=== PATIENT | male | born 1975 | race Caucasian/White ===

== ENCOUNTER 2020-02-10 15:30 | Outpatient (CLI) | payer OTHER, SELFPAY ==
--- NOTE | ~2020-02-10 | XR_ITS ---
XR lumbar spine 2-3V DATE: 02/10/2020 16:02 INDICATION: Low back pain TECHNIQUE: AP, lateral, coned lateral lumbosacral views COMPARISON: None FINDINGS: Mild dorsal scoliosis of the lower thoracic and lumbar spine. No fracture or bone destruction of the lumbar spine. The included lower thoracic and lumbar pedicles are intact. There is moderate degenerative disease at L2-3, L4-5 and mild to moderate degenerative disc disease a t L3-4 and L5-S1. The sacroiliac joints are unremarkable. IMPRESSION: Dextroscoliosis Mild to moderate degenerative disc disease Reviewed, dictated and finalized at location A. [employer]
--- NOTE | ~2020-02-10 | XR_ITS ---
XR thoracic spine 3V DATE: 02/10/2020 16:02 INDICATION: Back pain TECHNIQUE: AP, lateral, swimmer views COMPARISON: 02/10/2020 lumbar spine FINDINGS: There is mild degenerative spurring of the thoracic spine. No fracture or dislocation or bone destruction is detected. IMPRESSION: Mild degenerative spurring Reviewed, dictated and finalized at location A. ERER IMPRESSION: Mild degenerative spurring
== END 2020-02-10 15:31 | disposition home or self-care (01) ==
PROVIDERS: PCP Family Medicine; Visit Provider Nurse Practitioner Family
DX: M51.36 Other intervertebral disc degeneration, lumbar region (principal)
CPT/HCPCS: 72072; 72100